=== PATIENT | female | born 1990 | race Asian ===

== ENCOUNTER → 2017-02-20 | Outpatient (CLI) | payer OTHER ==
--- NOTE | 2017-02-20 19:25 | RAD ---
Obstetrical ultrasound less than 14 weeks HISTORY: female with pelvic pain and vaginal bleeding, positive urine hCG, no quantitative hCG available at time of exam. TECHNIQUE: Transabdominal and transvaginal transducers were utilized with grayscale and duplex Doppler sonography FINDINGS: Transabdominal imaging demonstrates anteverted uterus measuring 9.4 x 4.8 x 5.0 cm. No intrauterine gestational sac. Mild free fluid in the cul-de-sac. Endometrial thickness 7 mm. Left ovary partially visualized measuring 2.8 x 3.7 x 2.2 cm, right ovary partially visualized grossly measured 4.5 x 2.1 x 2.3 cm. Transvaginal imaging demonstrates anteverted uterus. No intrauterine gestational sac documented. Endometrium is poorly defined the fiber design engineer measures endometrium is 14 mm although the accuracy of this measurement is uncertain. Cervix length 3.5 cm. At right adnexa there is a tubular structure with hypoechoic layering debris with mild surrounding free fluid in the pelvis adjacent of the presumed right ovary which was measured as 2.5 x 1.8 x 2.1 cm with subcentimeter ovarian follicles. No discrete right adnexal hypervascular or solid masses documented. Limited visualization of the left ovary measured as 2.0 x 3.0 x 2.4 cm with a 2 cm simple cyst or follicle. IMPRESSION: No intrauterine documented. There is a tubular structure filled with fluid and layering debris at the right adnexa while this could be a abnormal fluid-filled small bowel loop, hydrosalpinx, hematosalpinx, or pyosalpinx would also be a consideration. No discrete adnexal mass is documented to confirm an ectopic although in the setting of positive urine hCG and absence of an intrauterine , an ectopic would be in the differential diagnosis. Sonographically early occult intrauterine with low quantitative hCG would also be a consideration. Correlation with quantitative hCG is advised. Electronically signed by: Chris Sanchez MD (02/20/2017 7:22 PM) [facility]
== END | disposition home or self-care (01) ==
LOC: US 16:06
PROVIDERS: ATTEND Preventive Medicine Occupational Medicine
DX: Z34.91 Encounter for supervision of normal pregnancy, unspecified, first trimester (principal); Z3A.00 Weeks of gestation of pregnancy not specified
CPT/HCPCS: 76801; 76817